=== PATIENT | male | born 1975 ===

== ENCOUNTER 2020-10-25 20:17 | Emergency (ER) | payer OTHER ==
[~2020-10-25] VITALS: Ht 172.7 cm; Wt 84.4 kg
[2020-10-25] MEDS ORDERED: BUPROPION HCL200 M1 (20:36)
[2020-10-25] MEDS ORDERED: ATORVASTATIN CA20 MG (20:37)
[2020-10-25] MEDS ORDERED: TOPROL XL25 MG (20:37)
[2020-10-25] MEDS ORDERED: ADULT LOW DOSE81 M1 (20:37)
[2020-10-25] MEDS ORDERED: DICLOFENAC SODI75 MG PO (22:03)
== END 2020-10-25 23:01 | disposition home or self-care (01) ==
LOC: ER 20:17
DX: M94.0 Chondrocostal junction syndrome [Tietze] (principal)

== ENCOUNTER 2022-07-03 22:55 | Emergency (ER) | payer OTHER ==
[~2022-07-03] VITALS: Ht 170.2 cm; Wt 86.2 kg
[~2022-07-03 22:55] MED LIST: ADULT LOW DOSE81 M1; ATORVASTATIN CA20 MG; BUPROPION HCL200 M1; DICLOFENAC SODI75 MG PO; TOPROL XL25 MG
== END 2022-07-04 02:20 | disposition left against medical advice (07) ==
LOC: ER 22:55
DX: M94.0 Chondrocostal junction syndrome [Tietze] (principal); I10 Essential (primary) hypertension